=== PATIENT | male | born 1995 | race Caucasian/White ===

== ENCOUNTER 2017-09-23 21:07 | Emergency (ER) | payer BC ==
[2017-09-23 22:09] VITALS: BP 119/60
[2017-09-23] MEDS ORDERED: Amoxicillin/Clavulanate TAB* 875 MG PO ONE (22:19)
[2017-09-23] MEDS ORDERED: Ibuprofen TAB* 400 MG PO ONE (22:19)
--- NOTE | 2017-09-23 22:24 | ED ---
Throat Pain/Nasal Congestion - HPI Summary HPI Summary: 22 yr old male with dental pain three days, located over right mandible molar. Pain 7/10, non radiating, no facial swelling. No other complaints. Denies drooling. Denies change in voice. - History of Current Complaint Chief Complaint: UCDentalProblem Time Seen by Provider: 09/23/17 22:19 - Allergies/Home Medications Allergies/Adverse Reactions: Allergies Allergy/AdvReac Type Severity Reaction Status Date / Time No Known Allergies Allergy Verified 09/23/17 22:09 Home Medications: Home Medications Ibuprofen TAB* [Motrin TAB* 800 MG] 800 mg PO Q8H PRN 09/23/17 [History Confirmed 09/23/17] PMH/Surg Hx/FS Hx/Imm Hx - Surgical History Surgery Procedure, Year, and Place: PENIS SURGERY AGE 4 Infectious Disease History: No Infectious Disease History: Denies: Traveled Outside the [place] in Last 30 Days - Family History Known Family History: Positive: None Family History: no known family history of cardio-vascular or bleeding disorders - Social History Alcohol Use: Rare Substance Use Type: Reports: None Smoking Status (MU): Light Every Day Tobacco Smoker Type: Cigarettes Amount Used/How Often: 3-4 cigarettes daily Have You Smoked in the Last Year: Yes Review of Systems Constitutional: Negative Positive: Dental Pain All Other Systems Reviewed And Are Negative: Yes Physical Exam Triage Information Reviewed: Yes Vital Signs On Initial Exam: Initial Vitals Temp Pulse Resp BP 99 F 84 18 119/60 09/23/17 22:01 09/23/17 22:01 09/23/17 22:01 09/23/17 22:01 Vital Signs Reviewed: Yes Appearance: Positive: Well-Appearing, No Pain Distress Skin: Positive: Skin Color Reflects Adequate Perfusion Head/Face: Positive: Normal Head/Face Inspection Eyes: Positive: EOMI ENT: Positive: Normal ENT inspection, Pharynx normal Dental: Positive: Gross Decay/Caries @ - at tooth 30 right mandible with tenderness to percussion, and mild gingival swelling. Respiratory/Lung Sounds: Positive: Clear to Auscultation, Breath Sounds Present Cardiovascular: Positive: RRR Musculoskeletal: Positive: Strength/ROM Intact Neurological: Positive: Sensory/Motor Intact, Alert, Oriented to Person Place, Time, CN Intact II-III - [place] Coma Scale Best Eye Response: 4 - Spontaneous Best Motor Response: 6 - Obeys Commands Best Verbal Response: 5 - Oriented Diagnostics - Vital Signs Vital Signs Temp Pulse Resp BP 09/23/17 22:01 99 F 84 18 119/60 - Laboratory Lab Statement: Any lab studies that have been ordered have been reviewed, and results considered in the medical decision making process. EENT Course/Dx - Course Course Of Treatment: 22 yr old with dental decay, cavity and abscess. Rx augmentin and fu with oral surgery. - Diagnoses Provider Diagnoses: Abscess, dental Discharge - Discharge Plan Condition: Good Disposition: HOME Prescriptions: Amoxicillin/Clavulanate TAB* [Augmentin TAB 875*] 875 mg PO BID #20 tab Ibuprofen TAB* [Motrin TAB* 600 MG] 600 mg PO Q6H PRN #20 tab PRN Reason: Pain Patient Education Materials: Dental Abscess (ED) Referrals: No Primary Care Phys,NOPCP [Primary Care Provider] - Jesse Gamboa DMD [Doctor of Dental Medicine] - 2 Days
[2017-09-23] MEDS ORDERED: Tetan/Diph/Pertus SYR(Tdap)* 0.5 ML SYR(BOOSTRIX) use SYR IM ONE (22:26)
== END 2017-09-23 22:38 | disposition home or self-care (01) ==
LOC: UCCORT 21:07
DX: K04.7 Periapical abscess without sinus (principal); Z23 Encounter for immunization; F17.210 Nicotine dependence, cigarettes, uncomplicated
CPT/HCPCS: 90471; 90715; 99212; A9270-GY; G0463